=== PATIENT | female | born 1990 | race Caucasian/White ===

== ENCOUNTER 2017-02-15 23:59 | Emergency (ER) | payer MEDICAID ==
[~2017-02-15 23:59] MED LIST: ACETAMINOPHEN PO; CIPRO PO; DICLOFENAC PO; DICYCLOMINE HCL20 MG PO; FAMOTIDINE PO; LORTAB 5/500 TA1 TA1 PO; NO MEDICATIONS; PHENERGAN PO; PHENERGAN25 MG PO; SPRINTEC; VICODIN 5/500 T1 TAB PO
[2017-02-16 01:16] LABS: URINE SOURCE CLEAN CATCH
[2017-02-16 01:31] LABS: URINE APPEARANCE CLEAR; URINE BILIRUBIN NEG (NEG); URINE BLOOD NEG (NEG); URINE COLOR YELLOW; URINE GLUCOSE NEG (NEG); URINE KETONE NEG (NEG); URINE LEUKOCYTE ESTERASE 2+ (NEG); URINE NITRATE NEG (NEG); URINE PROTEIN NEG (NEG); URINE SPECIFIC GRAVITY 1.017 (1.003-1.035)
[2017-02-16 01:35] LABS: CULTURE INDICATED? YES; URINE BACTERIA AUWI 3+ (NEGATIVE); URINE SQUAMOUS EPITHELIAL CELL OCC /[HPF]; UWBCS1 AUWI 25-50 (0-5)
== END 2017-02-16 01:10 | disposition left against medical advice (07) ==
LOC: CED 23:59
PROVIDERS: Emergency Medicine
DX: M79.1 Myalgia (principal); F17.200 Nicotine dependence, unspecified, uncomplicated
CPT/HCPCS: 36415; 81003; 84703; 87086; 87088; 87186; 99283

== ENCOUNTER 2017-02-20 08:57 | Emergency (ER) | payer MEDICAID | END 2017-02-20 09:00 | disposition left against medical advice (07) | LOC: CED 08:57 | DX: Z53.21 Procedure and treatment not carried out due to patient leaving prior to being seen by health care provider (principal) ==

== ENCOUNTER 2017-04-05 19:39 | Emergency (ER) | payer MEDICAID ==
[2017-04-05] MEDS ORDERED: NO MEDICATIONS (19:42)
== END 2017-04-05 20:59 | disposition home or self-care (01) ==
LOC: SED 19:39
DX: F11.10 Opioid abuse, uncomplicated (principal); F15.10 Other stimulant abuse, uncomplicated; F17.210 Nicotine dependence, cigarettes, uncomplicated
CPT/HCPCS: 99282

== ENCOUNTER 2017-05-29 17:44 | Emergency (ER) | payer MEDICAID ==
[2017-05-29] MEDS ORDERED: HEROIN (17:49)
== END 2017-05-29 20:04 | disposition home or self-care (01) ==
LOC: SED 17:44
DX: T40.1X1A Poisoning by heroin, accidental (unintentional), initial encounter (principal); K75.9 Inflammatory liver disease, unspecified
CPT/HCPCS: 99284